=== PATIENT | male | born 1965 | race Two or more races ===

== ENCOUNTER 2020-04-11 17:28 | Emergency (ER) | payer OTHER ==
[~2020-04-11] VITALS: Ht 170.2 cm; Wt 73.0 kg
--- NOTE | 2020-04-11 17:53 | NUR ---
BIB AND [employer] FROM NURSING HOME TO ER BED 6. AAOX4. BREATHING RAPID. CAME IN FOR SOB STARTED 3 HORS AGO. PER EMS, PT WAS GIVEN ALBUTEROL INHALER BUT INEFFECTIVE. BREATH SOUNDS HEARD AND NO NOTED WHEEZING. PT IS SATTING 96% ON RA. AWAITING MD FOR EVAL.
[2020-04-11 18:13] LABS: BASOPHILS % (AUTO) 0.5 % (0.0-2.0); EOSINOPHILS % (AUTO) 9.8 % (0.0-6.0); HEMATOCRIT 51 % (39-51); HEMOGLOBIN 17.1 g/dL (13.5-17.5); LYMPHOCYTES # (AUTO) 2.6 /CMM (0.8-4.8); MEAN CORPUSCULAR HGB CONC 33 g/dl (31.0-36.0); MEAN CORPUSCULAR VOLUME 90 fL (80-96); MONOCYTES # (AUTO) 0.6 /CMM (0.1-1.30); MONOCYTES % (AUTO) 8.4 % (2.0-12.0); NEUTROPHILS # (AUTO) 3.5 /CMM (1.8-8.9); NEUTROPHILS % (AUTO) 46.3 % (43.0-81.0); PLATELET COUNT (AUTO) 416 /CMM (150-450); RED BLOOD CELL COUNT(AUTO) 5.67 MIL/uL (4.5-6.0); WHITE BLOOD COUNT (AUTO) 7.5 K/uL (4.3-11.0)
[2020-04-11 18:20] LABS: CALCIUM, SERUM 9.8 mg/dL (8.5-10.1); CARBON DIOXIDE 26 mmol/L (21-32); CHLORIDE 101 mmol/L (98-107); GLUCOSE 102 mg/dL (74-106); POTASSIUM 4.1 mmol/L (3.5-5.1); SODIUM SERUM 139 mmol/L (136-145); UREA NITROGEN, BLOOD 12 mg/dL (7-18)
[2020-04-11 18:33] LABS: B-TYPE NATRIURETIC PEPTIDE 51 PG/ML (0-125)
[2020-04-11 19:02] VITALS: BP 152/106
== END 2020-04-11 19:02 ==
LOC: ER 17:38
DX: J44.9 Chronic obstructive pulmonary disease, unspecified (principal); Z99.81 Dependence on supplemental oxygen
CPT/HCPCS: 36415; 71045-TC; 80048-TC; 83880; 84484-TC; 85025-TC

== ENCOUNTER 2021-05-05 14:45 | Emergency (ER) | payer SELFPAY ==
[~2021-05-05] VITALS: Ht 170.2 cm; Wt 74.4 kg
--- NOTE | 2021-05-05 14:55 | NUR ---
THE PATIENT IS [id number] FOR COUGH, SOB X 4 DAYS. IN ROOM AIR AND DENIES SOB. RESPIRATION REGULAR AND UNLABORED. ATTACHED TO THE MONITOR. WILL CONTINUE TO MONITOR THE PATIENT.
[2021-05-05] MEDS ORDERED: predniSONE 20 MG TABLET PO ONE (15:00)
[2021-05-05] MEDS ORDERED: ALBUTEROL FS 2.5 MG/3 ML VIAL.NEB NEB ONE (15:00)
[2021-05-05] MEDS ORDERED: IPRATROPIUM NEB FS 0.5 MG/2.5 ML AMPUL.NEB NEB ONE (15:00)
[2021-05-05] MEDS ORDERED: predniSONE 20 MG TABLET ONE (15:09)
--- NOTE | 2021-05-05 15:21 | NUR ---
covid swab done and sent to the lab
[2021-05-05 15:27] LABS: BASOPHILS # (AUTO) 0.1 /CMM (0.0-0.2); BASOPHILS % (AUTO) 1.3 % (0.0-2.0); EOSINOPHILS % (AUTO) 8.2 % (0.0-6.0); HEMATOCRIT 50 % (39-51); HEMOGLOBIN 16.5 g/dL (13.5-17.5); LYMPHOCYTES # (AUTO) 1.6 /CMM (0.8-4.8); LYMPHOCYTES % (AUTO) 20.4 % (20.0-44.0); MEAN CORPUSCULAR HGB CONC 33 g/dl (31.0-36.0); MEAN CORPUSCULAR VOLUME 92 fL (80-96); MONOCYTES # (AUTO) 0.7 /CMM (0.1-1.30); MONOCYTES % (AUTO) 8.4 % (2.0-12.0); NEUTROPHILS % (AUTO) 61.7 % (43.0-81.0); PLATELET COUNT (AUTO) 299 /CMM (150-450); RED BLOOD CELL COUNT(AUTO) 5.42 MIL/uL (4.5-6.0)
[2021-05-05 15:31] LABS: CALCIUM, SERUM 8.9 mg/dL (8.5-10.1); CARBON DIOXIDE 23 mmol/L (21-32); CHLORIDE 107 mmol/L (98-107); GLUCOSE 103 mg/dL (74-106); POTASSIUM 4.4 mmol/L (3.5-5.1); SODIUM SERUM 141 mmol/L (136-145); UREA NITROGEN, BLOOD 15 mg/dL (7-18)
[2021-05-05] MEDS ORDERED: ALBUTEROL FS 2.5 MG/3 ML VIAL.NEB ONE (15:38)
[2021-05-05] MEDS ORDERED: IPRATROPIUM NEB FS 0.5 MG/2.5 ML AMPUL.NEB ONE (15:38)
[2021-05-05] MEDS ORDERED: AZIT1PAC9 PO (16:15)
[2021-05-05 16:48] VITALS: BP 119/75
--- NOTE | 2021-05-05 16:48 | NUR ---
The patient alert and oriented x4. In room air and denies SOB. Respiration regular and unlabored. Denies pain. Patient discharged to home in stable condition. Written and verbal after care instructions given. Patient verbalizes understanding of instruction.
== END 2021-05-05 16:49 ==
LOC: ER 14:45
DX: J44.0 Chronic obstructive pulmonary disease with (acute) lower respiratory infection (principal); J18.9 Pneumonia, unspecified organism; J44.1 Chronic obstructive pulmonary disease with (acute) exacerbation; Z20.822 Contact with and (suspected) exposure to COVID-19
CPT/HCPCS: 36415; 71045; 80048; 84484; 85025; 87426; 93005; 94640; 99285; C9803; J7512